=== PATIENT | male | born 1980 | race Two or more races ===

== ENCOUNTER 2019-05-23 05:38 | Emergency (ER) | payer OTHER ==
[~2019-05-23] VITALS: Ht 170.2 cm; Wt 81.2 kg
--- NOTE | 2019-05-23 05:43 | NUR ---
TO [facility] C/O SYNCOPAL EPISODE WITH POSTERIOR HEAD LACERATION S/P COUGHING SPELLS, NECK PAIN. PT AAOX4 NO ACUTE DISTRESS NOTED, RESP EVEN AND UNLABORED. PLACE PT ON CARDIAC MONITORING, CONTINUOUS POX. PENDING ER MD ELAM.
[2019-05-23] MEDS ORDERED: ONDANSETRON 4 MG TAB.RAPDIS ONE (05:50)
--- NOTE | 2019-05-23 05:50 | NUR ---
PT MEDICATED ORDERED. WOUND CARE IN PROGRESS BY EMT.
[2019-05-23] MEDS ORDERED: ONDANSETRON 4 MG TAB.RAPDIS SL ONE (06:00)
[2019-05-23] MEDS ORDERED: ONDANSETRON HCL/PF 4 MG/2 ML VIAL IVP ONE (06:30)
[2019-05-23] MEDS ORDERED: IV NS 0.9% 1,000 ML BAG IV ONE (06:30)
[2019-05-23] MEDS ORDERED: LIDOCAINE HCL/PF 1% 30 ML VIAL TP ONE (06:30)
[2019-05-23] MEDS ORDERED: TDAP [DIPH/PERTUSSIS/TET] 0.5 ML VIAL IM ONE ×2 (06:30→06:35)
[2019-05-23] MEDS ORDERED: ONDANSETRON HCL/PF 4 MG/2 ML VIAL ONE (06:35)
[2019-05-23 06:42] LABS: BASOPHILS # (AUTO) 0.1 /CMM (0.0-0.2); BASOPHILS % (AUTO) 0.5 % (0.0-2.0); HEMATOCRIT 47 % (39-51); HEMOGLOBIN 16.1 g/dL (13.5-17.5); LYMPHOCYTES # (AUTO) 5.1 /CMM (0.8-4.8); MEAN CORPUSCULAR HGB CONC 34 g/dl (31.0-36.0); MEAN CORPUSCULAR VOLUME 86 fL (80-96); MONOCYTES # (AUTO) 0.8 /CMM (0.1-1.30); MONOCYTES % (AUTO) 4.5 % (2.0-12.0); NEUTROPHILS # (AUTO) 6.1 /CMM (1.8-8.9); NEUTROPHILS % (AUTO) 36.1 % (43.0-81.0); PLATELET COUNT (AUTO) 288 /CMM (150-450); RED BLOOD CELL COUNT(AUTO) 5.43 MIL/uL (4.5-6.0)
[2019-05-23 06:49] LABS: CALCIUM, SERUM 9.3 mg/dL (8.5-10.1); CREATININE 1.2 mg/dL (0.6-1.3)
--- NOTE | 2019-05-23 06:51 | NUR ---
pt transported to radiology for ct head.
[2019-05-23 06:55] LABS: EOSINOPHILS % (AUTO) 28.9 % (0.0-6.0)
[2019-05-23] MEDS ORDERED: LIDOCAINE 1% INJ 50 ML MDV IJ ONE (06:56)
--- NOTE | 2019-05-23 07:00 | NUR ---
pt back from radiology. pending ct result.
--- NOTE | 2019-05-23 07:04 | NUR ---
er md at bedside for scalp laceration repair
--- NOTE | 2019-05-23 07:10 | NUR ---
report given to am shift oliver palomino.
[2019-05-23 07:26] LABS: EOSINOPHILS % (MANUAL) 26 % (0-4); LYMPHOCYTES % (MANUAL) 37 % (16-48); MONOCYTES % (MANUAL) 5 % (0-11.0); NEUTROPHILS % (MANUAL) 32 (42-76)
--- NOTE | 2019-05-23 07:45 | NUR ---
PATIENT A/OX4, NO RESPIRATORY DISTRESS NOTED. IV removed. Catheter intact and site benign. Pressure and 4x4 applied to site. No bleeding noted. Patient discharged to home in stable condition. Written and verbal after care instructions given. Patient verbalizes understanding of instruction. Family at bedside to accompany the patient home.
[2019-05-23 07:46] VITALS: BP 126/88
== END 2019-05-23 07:48 | disposition home or self-care (01) ==
LOC: ER 05:38
DX: S01.01XA Laceration without foreign body of scalp, initial encounter (principal); R55 Syncope and collapse; J98.01 Acute bronchospasm; J32.9 Chronic sinusitis, unspecified; F17.210 Nicotine dependence, cigarettes, uncomplicated; W19.XXXA Unspecified fall, initial encounter; Y93.89 Activity, other specified; Y92.89 Other specified places as the place of occurrence of the external cause; Y99.8 Other external cause status
CPT/HCPCS: 12002; 36415; 70450; 71045; 80048; 85025; 90471; 90715; 93005; 96361; 96374; 99284; A6403; J2405; J3490 ×2; J7030; Q0162

== ENCOUNTER 2019-05-25 15:45 | Emergency (ER) | payer OTHER ==
[~2019-05-25] VITALS: Ht 170.2 cm; Wt 80.3 kg
[2019-05-25 16:06] VITALS: BP 129/70
== END 2019-05-25 16:19 | disposition home or self-care (01) ==
LOC: ER 15:45
DX: S01.01XD Laceration without foreign body of scalp, subsequent encounter (principal); F17.210 Nicotine dependence, cigarettes, uncomplicated; X58.XXXD Exposure to other specified factors, subsequent encounter

== ENCOUNTER 2019-06-01 16:47 | Emergency (ER) | payer OTHER ==
[~2019-06-01] VITALS: Ht 170.2 cm; Wt 80.3 kg
[2019-06-01 17:00] VITALS: BP 137/83
== END 2019-06-01 17:27 | disposition home or self-care (01) ==
LOC: ER 16:49
DX: S01.01XD Laceration without foreign body of scalp, subsequent encounter (principal); F17.210 Nicotine dependence, cigarettes, uncomplicated; X58.XXXD Exposure to other specified factors, subsequent encounter